=== PATIENT | male | born 1995 | race Caucasian/White ===

== ENCOUNTER 2022-04-26 10:22 | Outpatient (REF) | payer OTHER, SELFPAY ==
[2022-04-26 12:04] LABS: Alanine Aminotransferase 34 U/L (0-40); Albumin Level 4.5 g/dL (3.5-5.0); Alkaline Phosphatase 68 U/L (39-117); Anion Gap 14 (12-20); Aspartate Amino Transferase 32 U/L (5-37); Bilirubin Total 1.1 mg/dL (0.0-1.0); Blood Urea Nitrogen 23 mg/dL (9-16); Calcium 9.1 mg/dL (8.4-10.2); Carbon Dioxide 24 mmol/L (22-29); Chloride 101 mmol/L (96-108); Cholesterol 179 mg/dL; Estimated Glomerular Filt Rate > 60; Glucose Fasting 88 mg/dL (60-99); HDL Cholesterol 44 mg/dL; LDL Cholesterol Calculated 107 mg/dl; Potassium 4.3 mmol/L (3.3-5.1); Sodium 135 mmol/L (135-145); Total Protein 7.1 g/dL (6.5-8.0); Triglycerides 140 mg/dL
[2022-04-26 12:09] LABS: HBS Num1 4.25 mIU/mL (0-7.99); HBc Num1 0.07 S/CO (0.00-0.79); HBsAGNum1 0.17 S/CO (0.00-0.99); HIV AB/AG Nonreactive (Nonreactive); HIV Num 1 0.06 S/CO (0.00-0.99); Hepatitis B Core Antibody Nonreactive (Nonreactive); Hepatitis B Surface Antigen Negative (Negative); ~HepC Num1 0.06 S/CO (0.00-0.79); ~Hepatitis B Surface Antibody NONREACTIVE (Nonreactive); ~Hepatitis C Antibody Nonreactive (Nonreactive)
[2022-04-26 12:13] LABS: TSH reflex Free T4 2.29 uIU/mL (0.32-4.0)
[2022-04-26 16:22] LABS: Appearance Urine Clear; Color Urine Yellow; Glucose Urine UA Negative (Negative); Leukocyte Esterase Urine Negative (Negative); Nitrite Urine Negative (Negative); Specific Gravity - Urine <= 1.005 (1.005-1.025); Urine Blood Negative (Negative); Urine Ketones Negative (Negative); Urine Protein Negative (Neg-Trace)
[2022-04-27 06:32] LABS: Syphilis Screen Nonreactive (Nonreactive)
== END 2022-04-26 10:23 | disposition home or self-care (01) ==
LOC: HO.WFDLDS 10:22
PROVIDERS: Visit Provider Family Medicine
DX: Z00.00 Encounter for general adult medical examination without abnormal findings (principal); Z11.3 Encounter for screening for infections with a predominantly sexual mode of transmission
CPT/HCPCS: 36415; 80053; 80061; 81003; 84443; 86704; 86706; 86780; 86803; 87340; 87389

== ENCOUNTER 2022-12-18 09:47 | Outpatient (REF) | payer OTHER, SELFPAY ==
[2022-12-18 12:38] LABS: MANUAL DIFF FLAG NO
[2022-12-18 12:49] LABS: Basophils Absolute Auto 0.1 X10*3/uL (0.0-0.2); Basophils Percent Auto 0.8 % (0-2); Eosinophils Absolute Auto 0.1 X10*3/uL (0.0-0.4); Eosinophils Percent Auto 0.9 % (0-4); Hematocrit 45.2 % (42.0-52.0); Hemoglobin 15.1 g/dl (14.0-18.0); Imm Gran Abs Auto 0.02 X10*3/uL (0.00-0.03); Imm Gran Pct Auto 0.3 % (0.0-0.4); Lymphocytes Absolute Auto 1.7 X10*3/uL (1.2-4.9); Lymphocytes Percent Auto 22.6 % (20-40); Mean Corpuscular HGB Conc 33.4 g/dl (31.0-36.0); Mean Corpuscular Hemoglobin 28.8 pg (27.0-33.0); Mean Corpuscular Volume 86.3 fL (80.0-98.0); Mean Platelet Volume 12.6 fL (9.4-12.4); Monocytes Absolute Auto 0.4 X10*3/uL (0.1-1.2); Monocytes Percent Auto 5.8 % (2-11); Neutrophils Absolute Auto 5.3 x10*3/uL (2.0-8.3); Neutrophils Percent Auto 69.6 % (45-73); Platelet Count 216 X10*3/uL (160-400); Red Blood Count 5.24 X10*6/uL (4.60-5.80); Red Cell Distribution Width 11.8 % (11.0-16.0); White Blood Count 7.6 X10*3/uL (4.8-10.8)
[2022-12-18 12:58] LABS: D Dimer High Sensitivity < 150 NG/ML
[2022-12-18 13:44] LABS: Alanine Aminotransferase 45 U/L (0-40); Albumin Level 4.8 g/dL (3.5-5.0); Alkaline Phosphatase 80 U/L (39-117); Anion Gap 14 (12-20); Aspartate Amino Transferase 22 U/L (5-37); Bilirubin Total 0.5 mg/dL (0.0-1.0); Blood Urea Nitrogen 16 mg/dL (9-16); Calcium 10.1 mg/dL (8.4-10.2); Carbon Dioxide 29 mmol/L (22-29); Chloride 103 mmol/L (96-108); Estimated Glomerular Filt Rate > 60; Glucose Random 93 mg/dL (60-115); Sodium 141 mmol/L (135-145); Total Protein 6.8 g/dL (6.5-8.0)
[2022-12-18 13:48] LABS: TSH reflex Free T4 2.03 uIU/mL (0.32-4.0)
== END 2022-12-18 09:48 | disposition home or self-care (01) ==
LOC: HO.WFDLDS 09:47
PROVIDERS: Visit Provider Family Medicine
DX: Z00.00 Encounter for general adult medical examination without abnormal findings (principal); R55 Syncope and collapse
CPT/HCPCS: 36415; 80053; 84443; 85025; 85379

== ENCOUNTER → 2023-01-11 14:48 | Outpatient (REF) | payer OTHER, SELFPAY ==
--- NOTE | 2023-01-11 14:51 | HM_ITS ---
* Total monitoring time 2 days. * Underlying rhythm is sinus. Average ventricular rate 69/Min. Range 50 to 135/Min. * 1 PVC and 2 PACs noted in the entire monitoring period. * No significant pauses or AV blocks. * No patient markers or events in diary. MTDD
== END ==
LOC: HO.CARD 14:48
PROVIDERS: PCP Family Medicine; Visit Provider Family Medicine
DX: R55 Syncope and collapse (principal)
CPT/HCPCS: 93225

== ENCOUNTER 2025-05-05 11:31 | Outpatient (REF) | payer BC, SELFPAY ==
[2025-05-05 14:03] LABS: MANUAL DIFF FLAG NO
[2025-05-05 14:08] LABS: Hematocrit 42.3 % (42.0-52.0); Hemoglobin 14.8 g/dl (14.0-18.0); Imm Gran Abs Auto 0.05 X10*3/uL (0.00-0.03); Imm Gran Pct Auto 0.7 % (0.0-0.4); Lymphocytes Absolute Auto 1.8 X10*3/uL (1.2-4.9); Mean Corpuscular HGB Conc 35.0 g/dl (31.0-36.0); Mean Corpuscular Hemoglobin 29.4 pg (27.0-33.0); Mean Corpuscular Volume 83.9 fL (80.0-98.0); NRBC Abs Auto 0.000 X10*3/uL (0.0-0.012); NRBC Pct Auto 0.0 /100WBC (0.0-0.2); Platelet Count 192 X10*3/uL (160-400); Red Blood Count 5.04 X10*6/uL (4.60-5.80); White Blood Count 7.5 X10*3/uL (4.8-10.8)
[2025-05-05 14:10] LABS: Appearance Urine Clear; Glucose Urine UA Negative (Negative); PH 7.0 (5.0-9.0); Specific Gravity - Urine 1.020 (1.005-1.025)
[2025-05-05 18:24] LABS: Alanine Aminotransferase 240 U/L (0-40); Albumin Level 4.8 g/dL (3.5-5.0); Alkaline Phosphatase 61 U/L (39-117); Anion Gap 13 (12-20); Aspartate Amino Transferase 78 U/L (5-37); Blood Urea Nitrogen 18 mg/dL (9-16); Calcium 9.2 mg/dL (8.4-10.2); Carbon Dioxide 26 mmol/L (22-29); Chloride 104 mmol/L (96-108); Estimated Glomerular Filt Rate > 60; Potassium 4.2 mmol/L (3.3-5.1); Sodium 139 mmol/L (135-145); Total Protein 7.3 g/dL (6.5-8.0)
[2025-05-06 08:06] LABS: HIV Num 1 0.05 S/CO (0.00-0.99)
== END 2025-05-05 11:32 | disposition home or self-care (01) ==
LOC: HO.WFDLDS 11:31
PROVIDERS: PCP Family Medicine; Visit Provider Family Medicine
DX: R53.83 Other fatigue (principal); R59.1 Generalized enlarged lymph nodes; R05.9 Cough, unspecified
CPT/HCPCS: 36415; 80053; 81003; 83615; 84443; 85025; 85652; 86141; 86308; 87389; 96127

== ENCOUNTER 2025-05-05 11:31 | Outpatient (AMB) | payer BC, SELFPAY ==
--- NOTE | 2025-05-05 11:37 | MHC.PC.OV ---
Vital Signs 05/05/25 11:43 Height 5 ft 7 in Weight 250 lb BMI 39.2 BP 130/82 Blood Pressure Location Rt brachial Position Sitting Respiration 14 Pulse 74 Pulse Source Pulse Oximeter Temp 96.8 F Temp Source Temporal Artery Scan Pulse Oximetry (%) 98 Oxygen Delivery Method Room Air Intake Visit Reasons: swollen lymph node /feeling fatigue Intake Note: Byron presents in the office today for swollen lymph nodes and fatigue which has been going on for over a month.. Allergies No Known Allergies Allergy (Verified 05/05/25 11:42) Medication List - Last Reconciled 05/05/25 by Sterling Quinn MD No Known Home Meds Tobacco use date assessed: 05/05/25 Dental Screening Dental Screen Date: 05/05/25 Did you have a dental visit in the last 12 months?: Yes Did you have a dental problem in the last 6 months where you did not have access to dental care?: No Was dental information given to patient?: Patient has dentist HPI swollen lymph node /feeling fatigue HPI Details 30 y/o male presents today with complaints of swollen lymph nodes, fatigue. Pt notes he had a cold about 1-2 months ago but feels improved. Does report some cough. Denies weight loss, excessive sweating. Notes a feeling of fullness around his jaw. [facility] Surgical History [place] teeth removed Family History (Updated 05/05/25 @ 11:43 by Nohelia Morel MA) Sister Substance abuse IV drug abuse Social History (Updated 05/05/25 @ 11:43 by Nohelia Morel MA) Housing: House Alcohol intake: current Patient Tobacco Use Status: Never used Tobacco e-Cigarette/Vaping Use: Never Used Second Hand Smoke Exposure: No Use of substances other than those prescribed or required for medical reasons: No service: No Current occupational status: employed Current occupational exposures/hazards: No Cognitive needs: No Hearing needs: No Vision needs: No Questionnaire PHQ-9 Over the last 2 weeks, how often have you been bothered by any of the following problems? 1. Little interest or pleasure in doing things: not at all 2. Feeling down, depressed, or hopeless: not at all 3. Trouble falling or staying asleep, or sleeping too much: several days 4. Feeling tired or having little energy: several days 5. Poor appetite or overeating: several days 6. Feeling bad about yourself - or that you are a failure or have let yourself or your family down: not at all 7. Trouble concentrating on things, such as reading the newspaper or watching television: not at all 8. Moving or speaking so slowly that other people could have noticed. Or the opposite - being so fidgety or restless that you have been moving around a lot more than usual: not at all 9. Thoughts that you would be better off or of hurting yourself in some way: not at all Total score: 3 Depression Screening Interpretation: Negative Depression Screening Done: Yes 12536 - PHQ-9 Billing: Yes Source: Developed by Drs. Orlando Cordoba, Ana Soriano, Ramesh Ramírez and colleagues, with an educational jimbo from [employer]. Thrive Questionnaire Date Thrive assessed: 05/02/25 I am a: Patient What is your living situation today?: I have a steady place to live Within the past 12 months, did the food you bought not last and you didn't have the money to get more?: I choose not to answer this question Within the past 12 months, did you worry whether your food would run out before you got money to buy more?: I choose not to answer this question Do you have trouble paying for medicines?: I choose not to answer this question Do you have trouble getting transportation to medical appointments?: I choose not to answer this question Do you have trouble paying your heating and electricity bill?: I choose not to answer this question Do you have trouble taking care of your child, family member or friend?: I choose not to answer this question Do you have trouble with day-to-day activities such as bathing, preparing meals, shopping, managing finances, etc.?: I choose not to answer this question Are you currently unemployed and looking for a job?: I choose not to answer this question Are you interested in more education?: I choose not to answer this question Please select the resources that you would like help with: None Currently or been in a relationship where the following occur: No concerns reported THRIVE Score: 0 AUDIT C Alcohol Use Questionnaire (AUDIT-C) 1. How often do you have a drink containing alcohol?: Monthly or less 2. How many drinks containing alcohol do you have on a typical day when you are drinking?: 3 or 4 3. How often do you have six or more drinks on one occasion?: Never Total Score: 2 [place]-7 AMB Questionnaire GE[place]-7 Date [place] - 7 assessed: 05/05/25 Feeling nervous, anxious, or on edge: 0 = Not at all Not being able to stop or control worryin = Not at all Worrying too much about different things: 0 = Not at all Trouble relaxin = Not at all Being so restless that it is hard to sit still: 0 = Not at all Becoming easily annoyed or irritable: 1 = Several days Feeling afraid as if something awful might happen: 0 = Not at all Total [place]-7 score (0-4 normal; 5-9 mild; 10-14 moderate; 15-21 severe): 1 Source: Developed by Drs. Orlando Cordoba, Ana Soriano, Ramesh Ramírez and colleagues, with an educational jimbo from [employer]. [place]-7 Assessment Billing [place]-7 Assessment Tool: [place]-7 Assessment 63998 Review of Systems Const Reports fatigue, Denies headache(s) and Denies weakness ENT Denies dizziness and Denies headache(s) Card Denies dyspnea Resp Denies cough, Denies dyspnea, Denies wheezing and Denies other (shortness of breath) Musc Denies numbness and Denies tingling Neuro Denies dizziness, Denies headache(s), Denies numbness, Denies tingling and Denies weakness Psych Denies anxiety and Denies depression Endo Reports fatigue Aller/Immun Denies wheezing Physical exam (Primary Care) Vital Signs: Last Vital Signs Temp 96.8 F 05/05/25 11:43 Pulse 74 05/05/25 11:43 Resp 14 05/05/25 11:43 BP 130/82 05/05/25 11:43 Pulse Ox 98 05/05/25 11:43 Oxygen Delivery Method Room Air 05/05/25 11:43 BMI result Body Mass Index 39.2 Tobacco/Smoking Status: Tobacco use Status Tobacco use date assessed 05/05/25 05/05/25 11:46 Patient Tobacco Use Status Never used Tobacco 05/05/25 11:43 e-Cigarette/Vaping Use Never Used 05/05/25 11:43 PHQ-9: PHQ-9 Score PHQ-9: Total score 3 05/05/25 12:16 Depression Screening Interpretation: Negative Thrive Assessment: Date of Thrive Assessment Date Thrive assessed 05/02/25 05/05/25 11:38 Currently or been in a relationship where the following occur: No concerns reported Const General: well developed; No acute distress Nutritional Appearance: well nourished Orientation/consciousness: patient oriented x3 HENMT Head: Yes normocephalic and Yes atraumatic Eyes General: appearance normal, both eyes and all related structures Pupils: Equal, round and reactive pupils present EOM: EOMs intact bilaterally Resp Effort & Inspection: normal respiratory effort Auscultation: clear to auscultation bilaterally Cardio Rate: regular rate Rhythm: regular rhythm Heart sounds: S1 normal heart sound present, S2 normal heart sound present, no gallops, no murmurs and no rubs Neuro General: patient oriented x3 and gait normal Cranial nerves: Yes Equal, round and reactive pupils present Psych Affect: normal affect Coding Level of Care Code Est Pt Level 3 (62099) Diagnoses Fatigue R53.83 Lymphadenopathy R59.1 Cough R05.9 Additional Codes [place]-7 Assessment Billing - [place]-7 Assessment Tool: [place]-7 Assessment 46238 ([id number]) PHQ-9 - 77089 - PHQ-9 Billing: Yes ([id number]) Assessment & Plan Assessment & Plan (1) Fatigue: Code(s): R53.83 - Other fatigue Category: Medical (2) Lymphadenopathy: Code(s): R59.1 - Generalized enlarged lymph nodes Category: Medical (3) Cough: Code(s): R05.9 - Cough, unspecified Category: Medical Plan Complaint of nontender lymphadenopathy and fatigue times a month. On exam he does have mild fullness at angle of right jaw HEENT otherwise unremarkable. Coarse breath sounds as well Likely viral illness. Will check labs and also chest x-ray Will also get ultrasound of fullness at right lateral neck He will follow-up by telemedicine in 3-4 weeks Orders: Orders Complete Blood Count Auto Diff Today R59.1 - Generalized enlarged lymph nodes, Z00.00 - Encounter for general adult medical examination without abnormal findings Comprehensive Met. Panel Today R59.1 - Generalized enlarged lymph nodes Erythrocyte Sedimentation Rate Today R59.1 - Generalized enlarged lymph nodes HIV Ab/Ag Today R59.1 - Generalized enlarged lymph nodes, Z11.3 - Encounter for screening for infections with a predominantly sexual mode of transmission XR chest 2V Today R59.1 - Generalized enlarged lymph nodes TSH reflex Free T4 Today R53.83 - Other fatigue, Z00.00 - Encounter for general adult medical examination without abnormal findings Monotest Today R59.1 - Generalized enlarged lymph nodes CRP High Sensitivity Today R59.1 - Generalized enlarged lymph nodes Lactate Dehydrogenase Today R59.1 - Generalized enlarged lymph nodes UA CC w/rflx Micro + Cult Today R53.83 - Other fatigue, Z00.00 - Encounter for general adult medical examination without abnormal findings US soft tiss head and/or neck Today R59.1 - Generalized enlarged lymph nodes
[2025-05-05 11:43] VITALS: BP 130/82; PULSE 74; RESP 14; TEMP 36; O2SAT 98; BMI 39.2
== END 2025-05-05 12:31 | disposition home or self-care (01) ==
LOC: HO.HMCFM 11:32
PROVIDERS: PCP Family Medicine; Visit Provider Family Medicine
DX: R53.83 Other fatigue (principal); R59.1 Generalized enlarged lymph nodes; R05.9 Cough, unspecified

== ENCOUNTER 2025-05-07 10:39 | Outpatient (REF) | payer BC, SELFPAY ==
--- NOTE | ~2025-05-07 | XR_ITS ---
EXAMINATION: XR CHEST CLINICAL INFORMATION: R59.1 - Generalized enlarged lymph nodes COMPARISON: None available. TECHNIQUE: 2 views of the chest were obtained. FINDINGS: No significant abnormality is noted involving the heart, lungs, mediastinum, bony thorax or soft tissues. XR/XR chest 2V IMPRESSION: No acute disease Electronically signed by: Sim Chavez MD 05/07/2025 10:53 AM EDT
== END 2025-05-07 10:40 | disposition home or self-care (01) ==
LOC: HO.XRAY 10:39
PROVIDERS: PCP Family Medicine; Visit Provider Family Medicine
DX: R59.1 Generalized enlarged lymph nodes (principal)
CPT/HCPCS: 71046

== ENCOUNTER → 2025-05-07 10:42 | Outpatient (BNV) | payer BC, SELFPAY | PROVIDERS: PCP Family Medicine; Visit Provider Radiology Diagnostic Radiology | DX: R05.9 Cough, unspecified (principal) | CPT/HCPCS: 71046 ==

== ENCOUNTER 2025-06-07 15:48 | Outpatient (AMB) | payer BC, SELFPAY ==
--- NOTE | 2025-06-07 15:46 | MHC.PC.OV ---
Intake Visit Reasons: f/u imaging, labs via telemed Intake Note: Telehealth to follow up on labs and imaging. Pulp Operator Required: No Allergies No Known Allergies Allergy (Verified 06/07/25 15:47) Medication List - Last Reconciled 06/07/25 by Sterling Quinn MD No Known Home Meds Tobacco use date assessed: 06/07/25 Dental Screening Dental Screen Date: 06/07/25 Did you have a dental visit in the last 12 months?: Yes Did you have a dental problem in the last 6 months where you did not have access to dental care?: No Was dental information given to patient?: Patient has dentist HPI f/u imaging, labs via telemed HPI Details 30 y/o male presents to f/u labs, chest x-ray, ultrasound. Chest x-ray 05/07/25 showed no acute disease. Labs drawn 05/05/25. Reviewed labs with pt. Elevated liver enzymes. AST 78, ALT 240. [facility] Surgical History [place] teeth removed Family History (Updated 05/05/25 @ 11:43 by Nohelia Morel MA) Sister Substance abuse IV drug abuse Social History (Updated 05/05/25 @ 11:43 by Nohelia Morel MA) Housing: House Alcohol intake: current Patient Tobacco Use Status: Never used Tobacco e-Cigarette/Vaping Use: Never Used Second Hand Smoke Exposure: No service: No Current occupational status: employed Current occupational exposures/hazards: No Cognitive needs: No Hearing needs: No Vision needs: No Questionnaire Thrive Questionnaire Date Thrive assessed: 05/02/25 I am a: Patient What is your living situation today?: I have a steady place to live Within the past 12 months, did the food you bought not last and you didn't have the money to get more?: I choose not to answer this question Within the past 12 months, did you worry whether your food would run out before you got money to buy more?: I choose not to answer this question Do you have trouble paying for medicines?: I choose not to answer this question Do you have trouble getting transportation to medical appointments?: I choose not to answer this question Do you have trouble paying your heating and electricity bill?: I choose not to answer this question Do you have trouble taking care of your child, family member or friend?: I choose not to answer this question Do you have trouble with day-to-day activities such as bathing, preparing meals, shopping, managing finances, etc.?: I choose not to answer this question Are you currently unemployed and looking for a job?: I choose not to answer this question Are you interested in more education?: I choose not to answer this question Please select the resources that you would like help with: None Currently or been in a relationship where the following occur: No concerns reported THRIVE Score: 0 [place]-7 AMB Questionnaire [place]-7 Date [place] - 7 assessed: 05/05/25 Source: Developed by Drs. Orlando Cordoba, Ana Soriano, Ramesh Ramírez and colleagues, with an educational jimbo from [employer]. Review of Systems Const Denies chills, Denies fatigue, Denies fever(s), Denies headache(s) and Denies weakness ENT Denies dizziness and Denies headache(s) Card Denies dyspnea Resp Denies cough, Denies dyspnea, Denies wheezing and Denies other (shortness of breath) Musc Denies numbness and Denies tingling Neuro Denies dizziness, Denies headache(s), Denies numbness, Denies tingling and Denies weakness Psych Denies anxiety and Denies depression Endo Denies fatigue Aller/Immun Denies wheezing Physical exam (Primary Care) Tobacco/Smoking Status: Tobacco use Status Tobacco use date assessed 06/07/25 06/07/25 15:48 Patient Tobacco Use Status Never used Tobacco 06/07/25 15:48 e-Cigarette/Vaping Use Never Used 06/07/25 15:48 Thrive Assessment: Date of Thrive Assessment Date Thrive assessed 05/02/25 06/07/25 15:48 Currently or been in a relationship where the following occur: No concerns reported Telehealth Telehealth Telehealth Platform: Telephone Location of provider rendering services: practice address Location of patient: address on file Patient Identification confirmed using: Name, : Yes Telehealth method: voice only Patient verbally consented to treatment: Yes Patient verbally consented to billing insurance company: Yes Patient informed of any privacy concerns related to visit: Yes Minutes spent on Phone/Video with Pt.: 8 Coding Level of Care Code Tele Est Pt Level 2 (15966) Diagnoses Elevated liver enzymes R74.8 Cough R05.9 Lymphadenopathy R59.1 Assessment & Plan Assessment & Plan (1) Elevated liver enzymes: Code(s): R74.8 - Abnormal levels of other serum enzymes Category: Medical Plan: Elevated liver enzymes. Patient is obese and notes that he uses a fair amount of Tylenol. Advised he work on weight loss, good hydration and decreased Tylenol usage. Also advised he avoid alcohol. Will recheck liver enzymes with next blood draw. If enzyme levels are the same or higher, will check an ultrasound (2) Cough: Code(s): R05.9 - Cough, unspecified Category: Medical Plan: Cough has resolved Chest x-ray was negative (3) Lymphadenopathy: Code(s): R59.1 - Generalized enlarged lymph nodes Category: Medical Plan: Patient notes that he still feels fullness at the side of his neck. CBC was unremarkable. Ultrasound of his neck is ordered and scheduled for next month. Will review at his next visit; will call sooner if indicated by results. Orders: Orders Complete Blood Count Auto Diff Today R59.1 - Generalized enlarged lymph nodes, Z00.00 - Encounter for general adult medical examination without abnormal findings Comprehensive [place]. Panel Fast Today R74.8 - Abnormal levels of other serum enzymes, Z00.00 - Encounter for general adult medical examination without abnormal findings
== END 2025-06-07 17:05 | disposition home or self-care (01) ==
LOC: HO.HMCFM 15:48
PROVIDERS: PCP Family Medicine; Visit Provider Family Medicine
DX: R74.8 Abnormal levels of other serum enzymes (principal); R05.9 Cough, unspecified; R59.1 Generalized enlarged lymph nodes

== ENCOUNTER 2025-07-02 07:51 | Outpatient (REF) | payer BC, SELFPAY ==
[2025-07-02 11:20] LABS: MANUAL DIFF FLAG NO
[2025-07-02 11:39] LABS: Hematocrit 45.5 % (42.0-52.0); Hemoglobin 15.4 g/dl (14.0-18.0); Imm Gran Abs Auto 0.06 X10*3/uL (0.00-0.03); Imm Gran Pct Auto 0.7 % (0.0-0.4); Lymphocytes Absolute Auto 2.1 X10*3/uL (1.2-4.9); Mean Corpuscular HGB Conc 33.8 g/dl (31.0-36.0); Mean Corpuscular Hemoglobin 28.9 pg (27.0-33.0); Mean Corpuscular Volume 85.4 fL (80.0-98.0); NRBC Abs Auto 0.000 X10*3/uL (0.0-0.012); NRBC Pct Auto 0.0 /100WBC (0.0-0.2); Platelet Count 207 X10*3/uL (160-400); Red Blood Count 5.33 X10*6/uL (4.60-5.80); White Blood Count 8.4 X10*3/uL (4.8-10.8)
[2025-07-02 11:57] LABS: Alanine Aminotransferase 205 U/L (0-40); Albumin Level 5.1 g/dL (3.5-5.0); Alkaline Phosphatase 66 U/L (39-117); Anion Gap 13 (12-20); Aspartate Amino Transferase 65 U/L (5-37); Blood Urea Nitrogen 16 mg/dL (9-16); Calcium 10.0 mg/dL (8.4-10.2); Carbon Dioxide 27 mmol/L (22-29); Chloride 101 mmol/L (96-108); Estimated Glomerular Filt Rate > 60; Potassium 4.2 mmol/L (3.3-5.1); Sodium 137 mmol/L (135-145); Total Protein 7.8 g/dL (6.5-8.0)
== END 2025-07-02 07:52 | disposition home or self-care (01) ==
LOC: HO.WFDLDS 07:51
PROVIDERS: Visit Provider Family Medicine
DX: Z00.00 Encounter for general adult medical examination without abnormal findings (principal); R59.1 Generalized enlarged lymph nodes; R74.8 Abnormal levels of other serum enzymes
CPT/HCPCS: 36415; 80053; 85025

== ENCOUNTER 2025-07-05 15:52 | Outpatient (REF) | payer BC, SELFPAY ==
--- NOTE | ~2025-07-05 | US_ITS ---
EXAMINATION: US SOFT TISSUE HEAD AND NECK. LIMITED. CLINICAL INFORMATION: R 59.1.. COMPARISON: None available. TECHNIQUE: Linear transducer gregorio-scale and color Doppler examination with attention to inferior right ear/deandre auricular. FINDINGS: Limited due to examination demonstrated nonspecific, a few scattered, less than 1.6 cm reniform shaped lymph nodes in the region of concern. US/US soft tiss head and/or neck IMPRESSION: Less than 1.6 cm inferior right periauricular lymph node, nonspecific.. Electronically signed by: Benedict Hicks MD 07/06/2025 06:49 AM RICHARD
== END 2025-07-05 15:53 | disposition home or self-care (01) ==
LOC: HO.US 15:52
PROVIDERS: PCP Family Medicine; Visit Provider Family Medicine
DX: R59.1 Generalized enlarged lymph nodes (principal)
CPT/HCPCS: 76536

== ENCOUNTER → 2025-07-05 15:56 | Outpatient (BNV) | payer BC, SELFPAY | PROVIDERS: PCP Family Medicine; Visit Provider Radiology Diagnostic Radiology | DX: R59.1 Generalized enlarged lymph nodes (principal) | CPT/HCPCS: 76536 ==